=== PATIENT | male | born 1990 | race Caucasian/White ===

== ENCOUNTER 2016-12-12 07:53 | Emergency (ER) | payer SELFPAY ==
[2016-12-12] MEDS ORDERED: Dexamethasone IV* 4 MG/ML 5 ML VIAL (20 MG) IVPB ONE (08:09)
[2016-12-12] MEDS ORDERED: Famotidine IV* 10 MG/ML 2 ML (20 mg) IV SLOW PU ONE (08:09)
[2016-12-12] MEDS ORDERED: diPHENhydraMINE IV* 50 MG/ML 1 ml VIAL (BENADRYL) IV ONE (08:09)
[2016-12-12] MEDS ORDERED: NS 0.9% 1000 ML* 1,000 ML IV ONE (08:10)
[2016-12-12 10:26] VITALS: BP 125/68
--- NOTE | 2016-12-12 17:11 | ED ---
Peter Vasquez Billy, scribed for Sky Hernandez MD on 12/12/16 at 0821 . Allergic Reaction/Systemic - HPI Summary HPI Summary: Patient is a 26 year-old male coming to [facility] for evaluation of a gradually worsening rash that started 4 days ago. 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 After work that day, he found a bump on the dorsal region of the right hand. The next day, he found several more bumps on both hands, and these bumps traveled up the arms and onto the face. They began to feel moderately itchy yesterday. This morning, he woke up feeling as if his face and lips were tight and swollen. Denies any tongue swelling, throat tightening, or any airway involvement. He has been taking Benadryl for the last 3 days with only little improvement. - History of Current Complaint Chief Complaint: EDAllergicReaction Time Seen by Provider: 12/12/16 08:04 Hx Obtained From: Patient Onset/Duration: Gradual Onset, Started days ago Timing: Constant Severity Initially: Moderate Severity Currently: Moderate Location: Discrete @ - Arms, face Character: Swelling, Hives Alleviating Factor(s): Antihistamines Associated Signs And Symptoms: Negative: Difficulty Breathing, Throat Tightening - Allergies/Home Medications Allergies/Adverse Reactions: Allergies Allergy/AdvReac Type Severity Reaction Status Date / Time No Known Allergies Allergy Verified 12/12/16 07:58 PMH/Surg Hx/FS Hx/Imm Hx Endocrine/Hematology History: Denies: Hx Diabetes Cardiovascular History: Denies: Hx Myocardial Infarction Infectious Disease History: No Infectious Disease History: Denies: Traveled Outside the [place] in Last 30 Days - Family History Family History: Mother has a history of melanoma. - Social History Alcohol Use: None Hx Substance Use: No Substance Use Type: Reports: None Hx Tobacco Use: No Smoking Status (MU): Never Smoked Tobacco Review of Systems Negative: Shortness Of Breath Positive: Edema Positive: Rash All Other Systems Reviewed And Are Negative: Yes Physical Exam - Summary Physical Exam Summary: VITAL SIGNS: Reviewed. GENERAL: Patient is a well developed and nourished male who is lying comfortable in the stretcher. Patient is not in any acute respiratory distress. HEAD AND FACE: No signs of trauma. No ecchymosis, hematomas or skull depressions. No sinus tenderness. EYES: PERRLA, EOMI x 2, No injected conjunctiva, no nystagmus. EARS: Hearing grossly intact. Ear canals and tympanic membranes are within normal limits. MOUTH: Oropharynx within normal limits. No lip swelling, no tongue swelling , patent airway. NECK: Supple, trachea is midline, no adenopathy, no JVD, no carotid bruit, no c- spine tenderness, neck with full ROM. CHEST: Symmetric, no tenderness at palpation LUNGS: Clear to auscultation bilaterally. No wheezing or crackles. CVS: Regular rate and rhythm, S1 and S2 present, no murmurs or gallops appreciated. ABDOMEN: Soft, non-tender. No signs of distention. No rebound no guarding, and no masses palpated. Bowel sounds are normal. EXTREMITIES: FROM in all major joints, no edema, no cyanosis or clubbing. NEURO: Alert and oriented x 3. No acute neurological deficits. Speech is normal and follows commands. SKIN: Dry and warm. Positive hives and erythema in the UE and face. Triage Information Reviewed: Yes Vital Signs On Initial Exam: Initial Vitals Temp Pulse Resp BP Pulse Ox 98.2 F 57 18 157/97 100 12/12/16 07:55 12/12/16 07:55 12/12/16 07:55 12/12/16 07:55 12/12/16 07:55 Vital Signs Reviewed: Yes Diagnostics - Vital Signs Vital Signs Temp Pulse Resp BP Pulse Ox 12/12/16 07:55 98.2 F 57 18 157/97 100 - Laboratory Lab Statement: Any lab studies that have been ordered have been reviewed, and results considered in the medical decision making process. Re-Evaluation - Re-Evaluation First Eval Re-Evaluation Time: 10:02 Change: Improved Allergic Reaction Course/Dx - Course Assessment/Plan: Patient is a 26 year-old male coming to [facility] for evaluation of a gradually worsening rash that started 4 days ago. 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 After work that day, he found a bump on the dorsal region of the right hand. The next day, he found several more bumps on both hands, and these bumps traveled up the arms and onto the face. They began to feel moderately itchy yesterday. This morning, he woke up feeling as if his face and lips were tight and swollen. Denies any tongue swelling, throat tightening, or any airway involvement. He has been taking Benadryl for the last 3 days with only little improvement. In the ED course, his vital signs were stable. The patient has no tongue swelling, throat tightening, or shortness of breath. He was given benadryl, decadron, and pepcid. After these medications, his symptoms improved and he is feeling much better. The erythema on his face has resolved. I discussed my physical exam findings with the patient. The patient will be given Rx for prednisone, benadryl, and pepcid for the next few days. He will be discharged home to follow up with PCP. He was instructed to return to the ED if any of his symptoms were to worsen or return. He understands and agrees. - Diagnoses Differential Diagnosis/HQI/PQRI: Positive: Anaphylaxis, Angioedema, Local Allergic Reaction, Urticaria Provider Diagnoses: Allergic reaction Discharge - Discharge Plan Condition: Stable Disposition: HOME Prescriptions: Famotidine TAB* [Pepcid 20 MG TAB*] 20 mg PO BID #10 tab diPHENhydraMINE PO* [Benadryl PO 25 MG TAB*] 25 mg PO TID PRN #30 tab PRN Reason: Allergy Symptoms predniSONE TAB* [Deltasone TAB*] 40 mg PO DAILY #10 tab Patient Education Materials: General Allergic Reaction (ED) Referrals: Flash Trimble MD [Primary Care Provider] - The documentation as recorded by the Peter vaughan Billy accurately reflects the service I personally performed and the decisions made by me, Sky Hernandez MD.
== END 2016-12-12 10:26 | disposition home or self-care (01) ==
LOC: ED 07:53
DX: T78.40XA Allergy, unspecified, initial encounter (principal); L50.9 Urticaria, unspecified; R60.9 Edema, unspecified; R21 Rash and other nonspecific skin eruption; X58.XXXA Exposure to other specified factors, initial encounter
CPT/HCPCS: 96365; 96375; 99283; J1200

== ENCOUNTER 2016-12-26 07:25 | Emergency (ER) | payer SELFPAY ==
[2016-12-26] MEDS ORDERED: Famotidine IV* 10 MG/ML 2 ML (20 mg) IV ONE (07:43)
[2016-12-26] MEDS ORDERED: methylPREDNISolone 125 MG* 2 ML VIAL IV ONE (07:43)
[2016-12-26] MEDS ORDERED: diPHENhydraMINE IV* 50 MG/ML 1 ml VIAL (BENADRYL) IV ONE (07:43)
--- NOTE | 2016-12-26 08:27 | ED ---
Pippa Vasquez Rebecca, scribed for Juan Carlos Park MD on 12/26/16 at 0756 . Allergic Reaction/Systemic - HPI Summary HPI Summary: Pt is a 26 y/o M who presents to ED c/o allergic reaction. 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 Beginning suddenly Wednesday morning at 0200, he started experiencing a rash on his hand and bilateral pruritis to the UE. Today, upon waking up his face suddenly began swelling. Sx have been constant since onset. Sx aggravated by exposure to Epoxy Grout, slightly alleviated by OTC Benadryl and Claritin. Denies difficulty breathing or difficulty swallowing. Prior similar episodes 2 weeks ago when exposed to Epoxy grout in an open wound for a prior work site. Was evaluated [place] [facility] and received IV steroids (Prednisone) which improved sx significantly. - History of Current Complaint Chief Complaint: EDAllergicReaction Time Seen by Provider: 12/26/16 07:35 Hx Obtained From: Patient Onset/Duration: Sudden Onset, Started days ago, Still Present Timing: Constant Severity Initially: Moderate Severity Currently: Moderate Pain Intensity: 0 Pain Scale Used: 0-10 Numeric Location: Discrete @ Character: Swelling - Facial, Pruritus - Bilateral UE, Hives - Hand Aggravating Factor(s): Other - Epoxy Alleviating Factor(s): OTC Meds - Benadryl and claritin Associated Signs And Symptoms: Positive: Negative, Other: - Denies difficulty swallowing. Negative: Difficulty Breathing - Allergies/Home Medications Allergies/Adverse Reactions: Allergies Allergy/AdvReac Type Severity Reaction Status Date / Time No Known Allergies Allergy Verified 12/12/16 07:58 PMH/Surg Hx/FS Hx/Imm Hx Endocrine/Hematology History: Denies: Hx Diabetes Cardiovascular History: Denies: Hx Myocardial Infarction Infectious Disease History: No Infectious Disease History: Denies: Traveled Outside the [place] in Last 30 Days - Family History Known Family History: Positive: Other - Hx melanoma (mother) Family History: Mother has a history of melanoma. - Social History Occupation: Employed Full-time Alcohol Use: None Hx Substance Use: No Substance Use Type: Reports: None Hx Tobacco Use: No Smoking Status (MU): Never Smoked Tobacco Review of Systems Positive: Other - Denies swallowing Positive: Other - Denies difficulty breathing Positive: Rash - hives on hand, bilateral UE pruritis, Other - Facial swelling All Other Systems Reviewed And Are Negative: Yes Physical Exam - Summary Physical Exam Summary: Gen: well-appearing, no pain distress Skin: warm, dry. Fine erythematous rash on the neck and arm Head: Swollen face Eyes: EOMI, DANIEL ENT: normal, posterior pharynx open, normal voice Neck: supple, nontender Resp: CTA, breath sounds present, no respiratory distress Cardio: RRR Abd: soft, nontender Bowel: present Musc: normal, strength/ROM intact Neuro: normal, sensory/motor intact, A&O x3 Psych: affect/mood appropriate Triage Information Reviewed: Yes Vital Signs On Initial Exam: Initial Vitals Temp Pulse Resp BP Pulse Ox 96.9 F 52 17 138/71 100 12/26/16 07:28 12/26/16 07:28 12/26/16 07:28 12/26/16 07:28 12/26/16 07:28 Vital Signs Reviewed: Yes Diagnostics - Vital Signs Vital Signs Temp Pulse Resp BP Pulse Ox 12/26/16 07:31 96.9 F 52 17 138/71 100 12/26/16 07:28 96.9 F 52 17 138/71 100 - Laboratory Lab Statement: Any lab studies that have been ordered have been reviewed, and results considered in the medical decision making process. Allergic Reaction Course/Dx - Course Course Of Treatment: NO CRITICAL CARE TIME Assessment/Plan: Pt is a 26 y/o M with a CC of allergic reaction presenting as facial swelling, bilateral UE pruritis and rash for 3 days as a response to exposure to Epoxy Grout. Denies difficulty breathing and difficulty swallowing. Given Pepcid, Benadryl and Solu-Medrol IV in the course of the ED. DISCHARGE HOME STABLE - Diagnoses Provider Diagnoses: Allergic reaction Discharge - Discharge Plan Condition: Stable Disposition: HOME Prescriptions: Famotidine TAB* [Pepcid 20 MG TAB*] 20 mg PO BID #10 tab diPHENhydraMINE PO* [Benadryl PO 25 MG TAB*] 25 mg PO TID PRN #30 tab PRN Reason: Allergy Symptoms predniSONE TAB* [Deltasone TAB*] 40 mg PO DAILY #10 tab Patient Education Materials: Allergies (ED) Referrals: Flash Trimble MD [Primary Care Provider] - Additional Instructions: FOLLOW UP WITH YOUR DOCTOR. RETURN TO THE EMERGENCY DEPARTMENT FOR ANY WORSENING OF YOUR CONDITION OR QUESTIONS OR CONCERNS. The documentation as recorded by the Pippa vaughan Rebecca accurately reflects the service I personally performed and the decisions made by me, Juan Carlos Park MD.
[2016-12-26 08:50] VITALS: BP 129/73
== END 2016-12-26 08:49 | disposition home or self-care (01) ==
LOC: ED 07:25
DX: T78.49XA Other allergy, initial encounter (principal); R21 Rash and other nonspecific skin eruption; R22.0 Localized swelling, mass and lump, head; X58.XXXA Exposure to other specified factors, initial encounter
CPT/HCPCS: 96374; 96375; 99282; J1200; J2930

== ENCOUNTER 2017-04-26 12:36 | Emergency (ER) | payer SELFPAY ==
[2017-04-26] MEDS ORDERED: ceFAZolin 1 GM VIAL(*) 1 GM in NS 0.9% 50 ML* 50 ML IVPB ONE (12:47)
[2017-04-26] MEDS ORDERED: Tetan/Diph/Pertus SYR(Tdap)* 0.5 ML SYR(BOOSTRIX) use SYR IM ONE (12:48)
[2017-04-26] MEDS ORDERED: NS 0.9% 1000 ML* 1,000 ML IV ONE (12:48)
[2017-04-26] MEDS ORDERED: Morphine INJ* 2 MG/ML 1 ML SYRINGE (TWO MG - NEW SYRINGE VERSION) IV PRN (12:49)
[2017-04-26] MEDS ORDERED: Ondansetron INJ* 2 MG/ML VIAL IV ONE (12:49)
[2017-04-26] MEDS ORDERED: ceFAZolin 1 GM VIAL(*) ONE ×2 (12:53→12:58)
[2017-04-26] MEDS ORDERED: Morphine VIAL* 10 MG/ML 1 ML VIAL ONE (12:55)
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
[2017-04-26] MEDS ORDERED: Morphine INJ* 2 MG/ML 1 ML CARPUJECT IV ONE (13:08)
[2017-04-26] MEDS: Morphine INJ* 2 MG/ML 1 ML SYRINGE (TWO MG - NEW SYRINGE VERSION) IV ONE ×2 (13:11→13:13)
[2017-04-26 13:42] VITALS: BP 165/84
== END 2017-04-26 13:30 | disposition short-term general hospital (02) ==
LOC: UCEAST 12:36
DX: S68.111A Complete traumatic metacarpophalangeal amputation of left index finger, initial encounter (principal); W31.2XXA Contact with powered woodworking and forming machines, initial encounter; Y93.9 Activity, unspecified; Y92.9 Unspecified place or not applicable; Z23 Encounter for immunization
CPT/HCPCS: 90471; 90715; 96361; 96365; 96374; 96375; 96376; 99214; G0463; J0690; J2270; J2405